=== PATIENT | male | born 1935 | race Caucasian/White ===

== ENCOUNTER 2024-01-19 05:22 | Day surgery (SDC) | payer MEDICARE, BC ==
[2024-01-19] VITALS (15 sets, daily range): BP systolic 95–130; BP diastolic 54–74; PULSE 67–89; TEMP 96.9–97.6
[~2024-01-19] VITALS: Ht 175.3 cm; Wt 81.8 kg
[2024-01-19] MEDS ORDERED: Celecoxib 400 MG PREOP X1 PO SCH (06:00)
[2024-01-19] MEDS ORDERED: LR 1,000 ML IV SCH (06:00)
[2024-01-19] MEDS ORDERED: Acetaminophen 500 MG TAB PREOP X1 PO SCH (06:00)
[2024-01-19] MEDS ORDERED: GABAPENTIN 300 MG PO SCH (06:00)
[2024-01-19] MEDS ORDERED: Famotidine 20 MG TAB PO SCH (06:00)
[2024-01-19] MEDS ORDERED: RESTORIL 1515 MG/CAP PO (06:03)
[2024-01-19] MEDS ORDERED: FLONASE NASAL S16 GM NS (06:03)
[2024-01-19] MEDS ORDERED: WIXELA 250-501 EACH IH (06:04)
[2024-01-19] MEDS ORDERED: LIPITOR20 MG PO (06:04)
[2024-01-19] MEDS ORDERED: SPIRIVA RESPIMAT4 GM IH (06:05)
--- NOTE | 2024-01-19 06:42 | NUR ---
PATIENT ADMITTED TO ROOM 8 AMBUALTORY ACCOMPANIED BY DAUGHTER. PATIENT IS ALERT AND ORIENTED AND VOICES UNDERSTANDING OF TOTAL LEFT HIP. CONSENT SIGNED FOR SURGERY AND ANESTHESIA. IVF INFUSING, MARTINEZ HOSE ON, AND CLEAN SCRUB DONE. PATIENT RESTING ON CART AND AWAITS SURGERY. CALL LIGHT IN REACH AND DAUGHTER IN ROOM.
[2024-01-19] MEDS ORDERED: fentaNYL 50 MCG/ML 2 ML VIAL ONE (06:51)
[2024-01-19] MEDS ORDERED: Midazolam 2 MG/2 ML VIAL ONE (06:51)
[2024-01-19] MEDS ORDERED: Lidocaine PF 2% (20 MG/ML) 5 ML VIAL ONE (06:51)
[2024-01-19] MEDS ORDERED: Tranexamic Acid 1,000 MG/10 ML VIAL ONE ×2 (07:42→08:23)
[2024-01-19] MEDS ORDERED: Topical Skin Adhesive 1 EACH (1 ML) TOP ONE (07:50)
[2024-01-19] MEDS ORDERED: Glycopyrrolate 0.2 MG/ML 1 ML VIAL ONE (07:56)
[2024-01-19] MEDS ORDERED: dexAMETHasone 10 MG/ML VIAL ONE (07:56)
[2024-01-19] MEDS ORDERED: Ondansetron 4 MG/2 ML VIAL ONE (07:56)
[2024-01-19] MEDS ORDERED: ePHEDrine 50 MG/ML VIAL ONE (08:11)
[2024-01-19] MEDS ORDERED: LR 1,000 ML IV ONE (08:24)
[2024-01-19] MEDS ORDERED: Meperidine 50 MG/ML 1 ML VIAL IV PRN (08:30)
[2024-01-19] MEDS ORDERED: Ondansetron 4 MG/2 ML VIAL IV PRN ×2 (08:30→09:30)
[2024-01-19] MEDS ORDERED: HYDROmorphone 1 MG/1 ML SYRINGE [PACU/SDC ONLY] IV PRN (08:30)
[2024-01-19] MEDS ORDERED: fentaNYL 50 MCG/ML 1 ML SYRINGE/VIAL [PACU/SDC ONLY] IV PRN (08:30)
[2024-01-19] MEDS ORDERED: Magnes Hydrox (MOM) 80 MG/ML 30 ML CUP PO PRN (09:30)
[2024-01-19] MEDS ORDERED: Acetaminophen 500 MG TAB PO PRN (09:30)
[2024-01-19] MEDS ORDERED: oxyCODONE 5 MG TAB PO PRN (09:30)
[2024-01-19] MEDS ORDERED: traMADol 50 MG TAB PO PRN (09:30)
[2024-01-19] MEDS ORDERED: NS 1,000 ML IV SCH (09:30)
[2024-01-19] MEDS ORDERED: Naloxone 0.4 MG/ML VIAL IV PRN (09:30)
[2024-01-19] MEDS ORDERED: Morphine 4 MG/ML VIAL IV PRN (09:30)
--- NOTE | 2024-01-19 11:05 | NUR ---
Pt recently arrived to the floor from pacu. He is alert and oriented with no complaints of pain. Pts daughter is at bedside at this time. Oriented pt to his room and educated on room service as well as post op plan of care. Gave pt ice water at this time. No other needs
[2024-01-19] MEDS ORDERED: Acetaminophen 500 MG TAB PO SCH (14:30)
[2024-01-19] MEDS ORDERED: ceFAZolin 2 G in Water For Injection,Sterile 20 ML IV SCH (15:30)
--- NOTE | 2024-01-19 16:00 | NUR ---
Pt continues to do well. Tolerating general diet with no complaints. Pain is minimal. Pt did get up to the chair with PT/OT. Daughter present at this time. At this time pt reported that he did not have the urge to void. Pt remains in the chair, no needs, call light within reach
[2024-01-19] MEDS ORDERED: Formoterol 20 MCG,Budesonide 0.5 MG IH SCH (19:00)
--- NOTE | 2024-01-19 19:00 | NUR ---
Pt unable to void after several attempts. Straight cathed pt with no difficulties. Pt tolerated. Minimal complaints of pain to his left hip. Pt is back in bed. Call light within reach
[2024-01-19] MEDS ORDERED: NS 500 ML IV ONE (20:15)
[2024-01-19] MEDS ORDERED: Temazepam 15 MG CAP PO SCH (21:00)
[2024-01-19] MEDS ORDERED: Fluticasone Nasal 50 MCG/Spray 16 GM BOTTLE NS SCH (21:00)
[2024-01-19] MEDS ORDERED: Sennosides/Docusate 8.6-50 MG TAB PO SCH (21:00)
[2024-01-19] MEDS ORDERED: Celecoxib 200 MG CAP PO SCH (21:00)
--- NOTE | 2024-01-19 21:00 | NUR ---
During 1999 VS, PCT reported pt's BP was 95/54. This nurse reassessed VS and BP was 86/58. Provider notified and new orders received. Scheduled meds administered per AUG. Shift assessment complete. No outstanding findings at this time. Incision to L hip dressed w/ aquacell. Dressing CDI. Pt. denies pain. No requests or complaints. Call light in reach.
[2024-01-20] VITALS (7 sets, daily range): BP systolic 94–111; BP diastolic 61–67; PULSE 67–80; TEMP 97.8–98
--- NOTE | 2024-01-20 02:00 | NUR ---
Patients bladder scan revealed 805mls of fluid. Patient up to bathroom at this time-max assist x1/walker/gait belt. Patient has been unable to void on own and has been straight cath'd prior. States he did void and urine noted in toilet-did not make it to hat-as well as BM. Assisted back to bed and rescanned. Patient with 600mls of fluid present. Orders to straight cath greater than 500mls. Patient refused stating he is finally getting the urge now. Requesting this nurse to help patient up again at 0400 to attempt to void and if unable straight cath then. Will bladder scan at 0400 if unable to void and straight cath at that time.
--- NOTE | 2024-01-20 04:00 | NUR ---
Bladder scan completed at this time-900mls. Patient states he finally has the urge to void. Assisted up to bathroom at this time. Voided 300mls. Rescanned bladder-600mls. Patient refused straight cath and requesting another trial. Will reassess at 0500.
--- NOTE | 2024-01-20 05:37 | NUR ---
Pt. had uneventful night. He denied pain through the night and was able to rest w/ eyes closed on and off. Voiding was a challenge for this pt during the night. However, he was able to void multiple time this morning. He is reluctant to be straight cathed. He is ambulating w/ x1 assist and walker. No complaints or request at this time.
--- NOTE | 2024-01-20 05:49 | NUR ---
Patient called stating he needed to void. Assisted up to bathroom at this time. Was able to void without difficulty. Bladder scan post-131mls. Patient states he has full feeling and urge at this time. Encouraged to inform staff if unable to void and feeling distention. Verbalizes understanding. Call light in reach. Will monitor.
[2024-01-20 06:38] LABS: HEMOGLOBIN 12.1 g/dl (13.5-18.0)
[2024-01-20 06:47] LABS: HEMATOCRIT 35.8 % (42.0-52.0)
[2024-01-20] MEDS ORDERED: Tiotropium 2.5 MCG Respimat MDI IH SCH (09:00)
[2024-01-20] MEDS ORDERED: Atorvastatin 20 MG TAB PO SCH (09:00)
--- NOTE | 2024-01-20 10:47 | NUR ---
SHIFT ASSESSMENT COMPLETE. PATIENT UP TO RECLINER W/ DAUGHTER AT BEDSIDE EATING BREAKFAST. ALL MORNING MEDS GIVEN PER ORDERS. PATIENT HAS NO REQUEST OR COMPLAINTS AT THIS TIME. FALL PRECAUTIONS IN PLACE AND CALL LIGHT IN REACH
--- NOTE | 2024-01-20 13:08 | NUR ---
driver/sales workers met with pt and daughter, Radha [phone] to discuss discharge planning. Pt reports to live alone in [place]. He sees Dr. Suazo for PCP needs and obtains medications from [facility] with no issues. He is independent with ADLS and uses a [facility] for DME. He reports his daughter is DPOA-HC and Radha has a copy at home. Radha lives in [place] and is visiting pt for the weekend. She reports pt is nervous to return home alone, but they are ordering a Life Alert device. Pt was actively doing so on the phone. SW discussed HH vs OP PT. Pt reports he is not home bound and still has been working as an insurance agency sales manager. He would like OP PT at [facility] and has used them before. Pt has concerns regarding medications and being able to drive. He was wanting to take an Uber to his appointments until he can drive since his daughter is leaving soon. Pt is comfortable doing so and his daughter had no concerns. SW advised she will send discharge orders upon his discharge to [facility]. No further concerns reported. Discharge Plan: home with OP PT
[2024-01-20] MEDS ORDERED: ASPIRIN E.C. 8181 MG PO (13:14)
[2024-01-20] MEDS ORDERED: ULTRAM 50MG TAB50 MG PO (13:14)
[2024-01-20] MEDS ORDERED: SENOKOT S 50 MG1 TAB PO (13:15)
--- NOTE | 2024-01-20 14:56 | NUR ---
gum worker faxed discharge orders and therapy notes to [facility]. Discharge Plan: home with OP PT
--- NOTE | 2024-01-20 15:01 | NUR ---
D: Red Leader stopped by room on rounds. A: Pt was resting and content in his chair with his daughter in the room. Pt has no needs right now. P: Red Leader informed pt that if he needed anything from the [facility] area to let his nurse know. Red Leader will follow up as needed.
== END 2024-01-20 16:09 | disposition home or self-care (01) ==
LOC: INPTSU 05:22 → SURG 05:22 → SDCO 05:22 → SURG 05:23 → SDCO 07:30 → SURG 07:30 → EDSTATUS 07:30 → INPTSU 10:53 → SURG 10:53 → SDCO 01-20 16:09 → SURG 01-20 16:09
PROVIDERS: Orthopaedic Surgery
DX: M16.12 Unilateral primary osteoarthritis, left hip (principal)
CPT/HCPCS: OP; A6197; A9270; A9284; C1713; C1776; J0688; J1100; J2250; J2405; J2704; J2795; J3010; J7030; J7040; J7120